=== PATIENT | male | born 1980 | race Caucasian/White ===

== ENCOUNTER 2017-11-22 22:23 | Emergency (ER) | payer OTHER ==
[~2017-11-22] VITALS: Ht 177.8 cm; Wt 128.8 kg
[~2017-11-22 22:23] MED LIST: BACTRIM DS1 TAB PO; BLOOD PRESSURE; CEPHALEXIN500 MG OR; CEPHALEXIN500 MG PO; CIPROFLOXACN500 MG PO; GLYBURIDE5 MG PO; HYDROCHLOROT25 MG PO; LANTUS100 MG/ML SC; LISINOPRIL20 MG PO; LOMOTIL2.5 MG PO; LORTAB 5 OR; LORTAB5 OR; METFORMIN1000 MG PO; NO HOME MEDS; ONDANSETRON4 MG PO; ULTRAM50 M1 PO
[2017-11-22 23:24] LABS: HEMATOCRIT 43.4 % (39.0-50.0); HEMOGLOBIN 15.4 g/dl (14.0-18.0); IMMATURE GRANULOCYTES 0.4 % (0.0-1.0); MEAN CELL VOLUME 87.3 fL CALC (80.0-100.0); MEAN CORPUSCULAR HGB CONC 35.5 g/L CALC (32.0-36.0); NEUT# 5.19 thou/uL (1.82-7.42); RED BLOOD COUNT 4.97 mill/uL (4.70-6.10)
[2017-11-22 23:42] LABS: BILIRUBIN, TOTAL 0.6 mg/dL (0.0-1.4); BUN 17 mg/dL (9-20); BUN/CREATININE RATIO 19 (12-20 (CALC)); CHLORIDE 95 mmol/l (95-108); CREATININE 0.9 mg/dL (0.7-1.3); GFR > 60 ML/MIN (>=60 (CALC)); GFR FOR AFR.AMER. > 60 ML/MIN (>=60 (CALC)); POTASSIUM 4.4 mmol/l (3.5-5.1); SGOT/AST 18 u/l (17-59); SGPT/ALT 45 u/l (21-72); TOTAL PROTEIN 7.3 g/dL (6.3-8.2)
[2017-11-22 23:45] LABS: ALBUMIN 4.3 g/dL (3.2-5.0); ALKALINE PHOSPHATASE 123 u/l (38-126); ANION GAP 19 (6-22 (CALC)); CARBON DIOXIDE 26 mmol/l (22-30); SODIUM 136 mmol/l (137-146)
[2017-11-23] MEDS ORDERED: FLEXERIL PO (01:20)
[2017-11-23 01:40] VITALS: BP 117/78
== END 2017-11-23 01:40 | disposition home or self-care (01) | DRG 74 ==
LOC: ED 22:23
PROVIDERS: Emergency Medicine
DX: E11.40 Type 2 diabetes mellitus with diabetic neuropathy, unspecified (principal); E11.65 Type 2 diabetes mellitus with hyperglycemia; I10 Essential (primary) hypertension

== ENCOUNTER 2018-01-31 07:15 | Emergency (ER) | payer OTHER ==
[~2018-01-31] VITALS: Ht 177.8 cm; Wt 118.0 kg
[~2018-01-31 07:15] MED LIST changes: +FLEXERIL PO
[2018-01-31] MEDS ORDERED: ROSUVASTATIN CA40 MG PO (07:39)
[2018-01-31] MEDS ORDERED: LISINOP/HCTZ1 TA2 PO (07:40)
[2018-01-31] MEDS ORDERED: CORTISPORIN OTI10 M2 AU (07:41)
[2018-01-31] MEDS ORDERED: TORADOL PO (07:41)
[2018-01-31 07:46] VITALS: BP 129/85
[2018-02-01] MEDS ORDERED: TRAMADOL HCL50 MG PO (03:53)
[2018-02-01] MEDS ORDERED: CIPROFLOXACN500 MG PO (03:53)
== END 2018-01-31 07:49 | disposition home or self-care (01) | DRG 156 ==
LOC: ED 07:15
DX: H60.92 Unspecified otitis externa, left ear (principal); J06.9 Acute upper respiratory infection, unspecified; E11.9 Type 2 diabetes mellitus without complications; I10 Essential (primary) hypertension

== ENCOUNTER 2018-02-01 03:10 | Emergency (ER) | payer OTHER ==
[~2018-02-01] VITALS: Ht 177.8 cm; Wt 122.8 kg
[~2018-02-01 03:10] MED LIST changes: +CORTISPORIN OTI10 M2 AU; +LISINOP/HCTZ1 TA2 PO; +ROSUVASTATIN CA40 MG PO; +TORADOL PO
[2018-02-01] MEDS ORDERED: TRAMADOL HCL50 MG PO (03:53)
[2018-02-01] MEDS ORDERED: CIPROFLOXACN500 MG PO (03:53)
[2018-02-01 04:20] VITALS: BP 148/81
== END 2018-02-01 04:20 | disposition home or self-care (01) | DRG 153 ==
LOC: ED 03:10
DX: H73.012 Bullous myringitis, left ear (principal); H92.02 Otalgia, left ear

== ENCOUNTER 2018-12-06 07:20 | Emergency (ER) | payer OTHER ==
[~2018-12-06] VITALS: Ht 177.8 cm; Wt 100.0 kg
[~2018-12-06 07:20] MED LIST changes: +TRAMADOL HCL50 MG PO
[2018-12-06] MEDS ORDERED: GLIPIZIDE5 MG PO (07:54)
[2018-12-06] MEDS ORDERED: NOVOLOG MIX SC ×2 (07:56→07:57)
[2018-12-06] MEDS ORDERED: TORADOL PO (09:07)
[2018-12-06] MEDS ORDERED: FLEXERIL PO (09:07)
[2018-12-06 09:56] VITALS: BP 142/84
== END 2018-12-06 10:03 | disposition home or self-care (01) | DRG 605 ==
LOC: ED 07:20
DX: S20.212A Contusion of left front wall of thorax, initial encounter (principal); S20.211A Contusion of right front wall of thorax, initial encounter; M79.672 Pain in left foot; M79.18 Myalgia, other site; V53.5XXA Driver of pick-up truck or van injured in collision with car, pick-up truck or van in traffic accident, initial encounter; Y92.413 State road as the place of occurrence of the external cause

== ENCOUNTER 2019-07-17 18:31 | Emergency (ER) | payer OTHER ==
[~2019-07-17] VITALS: Ht 177.8 cm; Wt 129.5 kg
[~2019-07-17 18:31] MED LIST changes: +GLIPIZIDE5 MG PO; +NOVOLOG MIX SC
[2019-07-17] MEDS ORDERED: NOVOLOG MIX SC ×2 (18:50→18:51)
[2019-07-17] MEDS ORDERED: ATORVASTATIN CA80 MG PO (19:18)
[2019-07-17] MEDS ORDERED: GLYBURIDE5 M1 PO (19:19)
[2019-07-17 19:59] VITALS: BP 152/79
== END 2019-07-17 19:59 | disposition home or self-care (01) | DRG 866 ==
LOC: ED 18:31
DX: B34.9 Viral infection, unspecified (principal); I10 Essential (primary) hypertension; E11.9 Type 2 diabetes mellitus without complications; Z79.4 Long term (current) use of insulin

== ENCOUNTER 2021-03-19 08:18 | Emergency (ER) | payer OTHER ==
[~2021-03-19 08:18] MED LIST changes: +ATORVASTATIN CA80 MG PO; +GLYBURIDE5 M1 PO
[2021-03-19] MEDS ORDERED: KEFLEX500 MG PO (11:32)
[2021-03-19 11:45] VITALS: BP 138/70
== END 2021-03-19 11:45 | disposition home or self-care (01) | DRG 563 ==
LOC: ED 08:18
DX: S93.401A Sprain of unspecified ligament of right ankle, initial encounter (principal); X50.0XXA Overexertion from strenuous movement or load, initial encounter; Y93.01 Activity, walking, marching and hiking; Y92.828 Other wilderness area as the place of occurrence of the external cause; S90.511A Abrasion, right ankle, initial encounter; W22.8XXA Striking against or struck by other objects, initial encounter; Y93.11 Activity, swimming; E11.9 Type 2 diabetes mellitus without complications; I10 Essential (primary) hypertension; F17.200 Nicotine dependence, unspecified, uncomplicated; Z79.4 Long term (current) use of insulin

== ENCOUNTER 2021-10-14 22:30 | Emergency (ER) | payer OTHER ==
[~2021-10-14] VITALS: Ht 177.8 cm; Wt 132.0 kg
[~2021-10-14 22:30] MED LIST changes: +KEFLEX500 MG PO
[2021-10-14 23:41] VITALS: BP 155/96
[2021-10-14 23:46] VITALS: BP 145/88
[2021-10-15] VITALS (9 sets, daily range): BP systolic 122–148; BP diastolic 70–83
[2021-10-15] MEDS ORDERED: TESSALON PERLE100 MG PO ×2 (01:12→11:30)
== END 2021-10-15 02:15 | disposition home or self-care (01) | DRG 153 ==
LOC: ED 22:30
DX: J06.9 Acute upper respiratory infection, unspecified (principal); I10 Essential (primary) hypertension; E11.9 Type 2 diabetes mellitus without complications; F17.200 Nicotine dependence, unspecified, uncomplicated; Z79.4 Long term (current) use of insulin; Z79.84 Long term (current) use of oral hypoglycemic drugs; Z20.822 Contact with and (suspected) exposure to COVID-19

== ENCOUNTER 2022-01-03 12:02 | Emergency (ER) | payer OTHER ==
[~2022-01-03] VITALS: Ht 177.8 cm; Wt 131.0 kg
[~2022-01-03 12:02] MED LIST changes: +TESSALON PERLE100 MG PO
[2022-01-03 12:11] VITALS: BP 153/94
[2022-01-03 14:01] VITALS: BP 115/80
[2022-01-03 14:03] VITALS: BP 115/80
[2022-01-03] MEDS ORDERED: NAPROXEN500 MG PO (14:06)
[2022-01-03] MEDS ORDERED: FLEXERIL5 M1 PO (14:06)
== END 2022-01-03 14:23 | disposition home or self-care (01) | DRG 563 ==
LOC: ED 12:02
DX: S29.012A Strain of muscle and tendon of back wall of thorax, initial encounter (principal); I10 Essential (primary) hypertension; E11.9 Type 2 diabetes mellitus without complications; E78.5 Hyperlipidemia, unspecified; F17.200 Nicotine dependence, unspecified, uncomplicated; X50.0XXA Overexertion from strenuous movement or load, initial encounter; Y93.89 Activity, other specified; Y92.89 Other specified places as the place of occurrence of the external cause; Y99.0 Civilian activity done for income or pay; Z79.4 Long term (current) use of insulin; Z79.84 Long term (current) use of oral hypoglycemic drugs

== ENCOUNTER 2023-09-30 09:34 | Emergency (ER) | payer OTHER ==
[2023-09-30] VITALS (11 sets, daily range): BP systolic 117–179; BP diastolic 66–109
[~2023-09-30] VITALS: Ht 177.8 cm; Wt 132.0 kg
[~2023-09-30 09:34] MED LIST changes: +FLEXERIL5 M1 PO; +NAPROXEN500 MG PO
[2023-09-30 12:40] LABS: BASO% 0.7 % (0-3); EOS% 2.7 % (0-8); HEMATOCRIT 53.8 % (39.0-50.0); HEMOGLOBIN 17.9 g/dl (14.0-18.0); IMMATURE GRANULOCYTES 0.2 % (0.0-5.0); LYMPH% 22.6 % (15-41); MEAN CELL VOLUME 88.6 fL CALC (80.0-100.0); MEAN CORPUSCULAR HGB 29.5 pG CALC (26.0-32.0); MEAN CORPUSCULAR HGB CONC 33.3 g/dL CAL (32.0-36.0); NEUT# 6.95 thou/uL (1.82-7.42); NEUT% 65.8 % (42-76); RED BLOOD COUNT 6.07 mill/uL (4.70-6.10); RED CELL DISTRI WIDTH 13.4 % (11.5-15.5)
[2023-09-30 12:58] LABS: ALBUMIN 4.7 g/dL (3.2-5.0); BILIRUBIN, TOTAL 0.7 mg/dL (0.2-1.3); POTASSIUM 4.9 mmol/l (3.5-5.1); SODIUM 139 mmol/l (137-146); TOTAL PROTEIN 8.3 g/dL (6.3-8.2)
[2023-09-30 13:00] LABS: PROTHROMBIN TIME 9.7 SECONDS (9.0-12.5)
[2023-09-30 13:02] LABS: ALKALINE PHOSPHATASE 61 u/l (38-126); ANION GAP 19 (6-22 (CALC)); BUN 23 mg/dL (9-20); BUN/CREATININE RATIO 23 (12-20 (CALC)); CARBON DIOXIDE 17 mmol/l (22-30); CHLORIDE 108 mmol/l (95-108); GFR FOR AFR.AMER. > 60 ML/MIN (>=60 (CALC)); GFR OTHER RACES > 60 ML/MIN (>=60 (CALC)); SGOT/AST 45 u/l (17-59)
[2023-09-30 13:06] LABS: D-DIMER 0.53 mg/L (0.19-0.60)
== END 2023-09-30 13:40 | disposition home or self-care (01) | DRG 948 ==
LOC: ED 09:34
PROVIDERS: Nurse Practitioner
DX: R60.0 Localized edema (principal); I10 Essential (primary) hypertension; E11.9 Type 2 diabetes mellitus without complications; E78.5 Hyperlipidemia, unspecified; Z79.84 Long term (current) use of oral hypoglycemic drugs; Z79.4 Long term (current) use of insulin; Z79.890 Hormone replacement therapy